=== PATIENT | female | born 1965 | race Asian ===

== ENCOUNTER 2020-04-16 19:09 | Emergency (ER) | payer OTHER ==
[~2020-04-16] VITALS: Ht 157.5 cm; Wt 80.7 kg
[2020-04-16 19:09] VITALS: BP 127/74; TEMP 99
[2020-04-16 20:19] LABS: PLATELET COUNT 164 K/uL (152-353)
[2020-04-16 20:24] LABS: POTASSIUM 3.7 mmol/L (3.6-5.2)
[2020-04-16] MEDS ORDERED: BACL10TA4 PO (23:12)
[2020-04-16] MEDS ORDERED: BIOTIN5000 MC2 PO (23:14)
[2020-04-16] MEDS ORDERED: BUSPIRONE5 MG PO (23:19)
[2020-04-16] MEDS ORDERED: DEPAKOTE DR PO (23:21)
[2020-04-16] MEDS ORDERED: DIAZEPAM10 M2 PO (23:22)
[2020-04-16] MEDS ORDERED: DULOXETINE HCL PO (23:26)
[2020-04-16] MEDS ORDERED: FAMO20TA4 PO (23:28)
[2020-04-16] MEDS ORDERED: FERROUS SULF325 MG PO (23:30)
[2020-04-16] MEDS ORDERED: FLONASE AL50 MCG/ACT NAS (23:33)
[2020-04-16] MEDS ORDERED: FURO20TA67 PO (23:34)
[2020-04-16] MEDS ORDERED: GABA300C2 PO (23:36)
[2020-04-16] MEDS ORDERED: TROCHIBASE PO (23:40)
[2020-04-16] MEDS ORDERED: PRAVACHOL20 MG PO (23:41)
[2020-04-16] MEDS ORDERED: SPIRONOLACT25 MG PO (23:43)
[2020-04-16] MEDS ORDERED: SERT100T PO (23:45)
[2020-04-16] MEDS ORDERED: OLAN2.5T2 PO (23:46)
[2020-05-01] MEDS ORDERED: FOLI1TAB26 PO (08:26)
[2020-05-01] MEDS ORDERED: VITAMIN D50000 UNIT PO (08:26)
[2020-05-01] MEDS ORDERED: DULO30CA PO (08:27)
[2020-05-01] MEDS ORDERED: BUSP5TAB2 PO (08:27)
[2020-05-01] MEDS ORDERED: DIVALPROEX500 MG PO (08:28)
== END 2020-04-16 21:30 | disposition still patient (30) ==
LOC: ED 19:13
PROVIDERS: Emergency Medicine Emergency Medical Services
DX: R46.89 Other symptoms and signs involving appearance and behavior (principal); F32.9 Major depressive disorder, single episode, unspecified; Z11.59 Encounter for screening for other viral diseases; Z04.6 Encounter for general psychiatric examination, requested by authority
CPT/HCPCS: 36415; 80053; 81000; 85027; 87635; 93005; 99283; U0003